=== PATIENT | male | born 2000 | race Two or more races ===

== ENCOUNTER → 2025-04-14 | Emergency (ER) | payer OTHER ==
[~2025-04-14] VITALS: Ht 175.3 cm; Wt 127.0 kg
[~2025-04-14] MED LIST: 0.9 % SODIUM CHLORIDE 1,000 ML IV SCH; DIPHENHYDRAMINE HCL 50 MG CAPSULE PO STA; DIPHENHYDRAMINE HCL 50 MG/ML VIAL 1ML ONE; HALOPERIDOL 2 MG TABLET PO STA; HALOPERIDOL 5 MG TABLET PO ONE; HALOPERIDOL LACTATE 2 MG/ML ML PO STA; HALOPERIDOL LACTATE 5 MG/ML AMPUL IM STA; HALOPERIDOL LACTATE 5 MG/ML AMPUL ONE; LORazepam 2 MG/ML VIAL IM STA; LORazepam 2 MG/ML VIAL ONE
[2025-04-14 09:37] LABS: BASO % 0.5 % (0.1-1.2); EOS # 0.04 (0.04-0.54); EOS % 0.6 % (0.7-7.0); LYMPH # 1.36 (1.18-3.74); LYMPH % 20.5 % (19.3-53.1); MEAN PLATELET VOLUME 9.50 fl (9.4-12.4); MONO # 0.39 (0.24-0.82); MONO % 5.9 % (4.7-12.5); NEUT # 4.79 (1.56-6.13); NEUT % 72.3 % (34.0-71.1); RED CELL DISTRIBUTION WIDTH 12.9 % (11.6-14.4)
[2025-04-14 09:56] LABS: INR 1.06
[2025-04-14 10:00] LABS: ALT/SGPT 34.0 U/L (12-78); AST/SGOT 30.0 U/L (15-37); BILIRUBIN TOTAL 1.17 mg/dL (0.3-1.2); BUN CREA RATIO 14.0 (7.0-25.0); CREATININE SERUM 0.99 mg/dL (0.70-1.30); GFR 92.87; GLOBULINA 3.7 G/DL (2.4-3.5); GLUCOSE FASTING 88.0 mg/dL (65-100); OSMOLALITY SERUM 277.0 MOSM/KG (275-295)
[2025-04-14 10:16] LABS: URINE APPEARANCE Clear; URINE BILIRRUBIN Small (NEGATIVE); URINE BLOOD Negative; URINE COLOR Dark Yellow; URINE GLUCOSE Negative (NEGATIVE); URINE KETONE 15 (NEGATIVE); URINE LEUKOCYTE Negative; URINE NITRATE Negative; URINE PROTEIN 30 (NEGATIVE); URINE UROBILINOGEN 1.0 E.U./dl
[2025-04-14 10:21] LABS: URINE BACTERIA 330.0 uL (0.0-1933); URINE EPITHELIAL CELLS 5.2 uL (0.0-38.8); URINE RBC 4.6 uL (0.0-20.8); URINE WBC 18.7 uL (0.0-23.2)
[2025-04-14 10:27] LABS: COCAINE NEGATIVE (NEGATIVE); METHADONE NEGATIVE (NEGATIVE); OPIATES NEGATIVE (NEGATIVE); THC ( Cannabinoids) NEGATIVE (NEGATIVE)
[2025-04-14 10:38] LABS: URINE CAST 0.73 uL (0.0-1.40)
== END | disposition left against medical advice (07) ==
LOC: ER 08:00
PROVIDERS: Physician Assistant Medical
DX: R45.851 Suicidal ideations (principal); Z59.89 Other problems related to housing and economic circumstances